=== PATIENT | male | born 1960 | race Caucasian/White ===

== ENCOUNTER 2017-12-31 18:17 | Observation (INO) | payer MEDICARE, OTHER ==
[~2017-12-31] VITALS: Ht 170.2 cm; Wt 73.7 kg
[~2017-12-31 18:17] MED LIST: LEVAQUIN500 MG PO; NEXIUM20 MG PO; NORCO 7.5-3251 EACH PO; SERTRALINE HCL100 MG PO; SINEMET 25-1001 EACH PO; STOOL SOFTENER1 EAC2 PO
[2017-12-31] MEDS ORDERED: ALBUTEROL SULF 0.083% NEB SOLN 3 ML NEB NEB STA (18:35)
[2017-12-31] MEDS ORDERED: SODIUM CHLORIDE 0.9% 500ML 500 ML IV STA (18:35)
[2017-12-31] MEDS ORDERED: IPRATROPIUM BROMIDE 0.02% 2.5 ML NEB NEB STA (18:35)
[2017-12-31 19:15] LABS: BASOPHILS # (AUTO) 0.1 (0.0-0.1); BASOPHILS % 0.5 % (0.0-1.0); EOSINOPHILS # (AUTO) 0.1 (0.0-0.4); EOSINOPHILS % 1.1 % (0.0-6.0); HEMATOCRIT 45.8 % (38.2-49.6); HEMOGLOBIN 14.8 g/dL (14.0-18.0); LYMPHOCYTES # (AUTO) 1.8 (1.0-3.2); LYMPHOCYTES % 19.2 % (18.0-39.1); MEAN CORPUSCULAR HEMOGLOBIN 29.1 pg (28-32); MEAN CORPUSCULAR HGB CONC 32.3 g/dL (31-35); MONOCYTES # (AUTO) 0.8 (0.2-0.8); MONOCYTES % 8.6 % (4.4-11.3); NEUTROPHILS # (AUTO) 6.6 (2.1-6.9); NEUTROPHILS % 70.1 % (38.7-80.0); PLATELET COUNT 298 x10e3/uL (140-360); RED BLOOD COUNT 5.09 x10e6/uL (4.3-5.7); RED CELL DISTRIBUTION WIDTH 12.9 % (11.7-14.4)
[2017-12-31] MEDS: CEFTRIAXONE SOD 1 GM VIAL IV SCH (19:23)
[2017-12-31] MEDS ORDERED: AZITHROMYCIN 500MG/NS 250 ML 250 ML IV STA (19:25)
[2017-12-31 19:26] LABS: INR 1.14; PROTHROMBIN TIME 13.7 seconds (11.9-14.5)
[2017-12-31 19:27] LABS: PARTIAL THROMBOPLASTIN TIME 28.2 seconds (23.8-35.5)
[2017-12-31 19:36] LABS: ALANINE AMINOTRANSFERASE < 6 IU/L (0-55); ALBUMIN 4.3 g/dL (3.5-5.0); ALBUMIN/GLOBULIN RATIO 1.1 (0.8-2.0); ALKALINE PHOSPHATASE 66 IU/L (40-150); ANION GAP 18.5 mmol/L (8-16); BLOOD UREA NITROGEN 14 mg/dL (7-26); BUN/CREATININE RATIO 10 (6-25); CALCIUM 10.1 mg/dL (8.4-10.2); CARBON DIOXIDE 26 mmol/L (22-29); CHLORIDE 100 mmol/L (98-107); CREATINE KINASE 139 IU/L (30-200); CREATININE, SERUM 1.41 mg/dL (0.72-1.25); EST GLOMERULAR FILTRATION RATE 51 ML/MIN (60-); GLUCOSE 100 mg/dL (74-118); MAGNESIUM 2.1 MG/DL (1.3-2.1); POTASSIUM 4.5 mmol/L (3.5-5.1); SODIUM 140 mmol/L (136-145)
[2017-12-31 19:38] LABS: B-TYPE NATRIURETIC PEPTIDE2 17.8 pg/mL (0-100)
[2017-12-31 19:55] LABS: THYROID STIMULATING HORMONE 3.046 uIU/mL (0.350-4.940)
--- NOTE | 2017-12-31 19:56 | Diagnostic Imaging Report ---
EXAM: XR CHEST 2 VIEWS DATE: 12/31/2017 6:35 PM INDICATION: Pain COMPARISON: 10/15/2016 FINDINGS: Lines and Tubes: None Heart and Mediastinum: No acute cardiomediastinal findings. Lungs and Pleura: Patchy basilar opacities in the right midlung and left lung base. Bones and Soft Tissues: No acute findings. IMPRESSION: 1. Patchy opacities. Correlation for pneumonia. 4 week follow-up recommended. Signed by: Dr. Keith Singh MD on 12/31/2017 7:52 PM
[2017-12-31] MEDS ORDERED: ASPIRIN 81 MG CHEW TAB PO ONE (20:30)
[2017-12-31] MEDS ORDERED: SODIUM CHLORIDE FLUSH 10 ML SYR INJ PRN (20:30)
[2017-12-31] MEDS ORDERED: ALBUTEROL SULF 0.083% NEB SOLN 3 ML NEB NEB SCH (20:30)
[2017-12-31 21:16] LABS: BILIRUBIN,URINE NEGATIVE (NEGATIVE); CLARITY,URINE CLEAR (CLEAR); COLOR,URINE YELLOW (YELLOW); KETONES,URINE NEGATIVE (NEGATIVE); LEUKOCYTE ESTERASE ,URINE NEGATIVE (NEGATIVE); NITRITE,URINE NEGATIVE (NEGATIVE); PROTEIN,URINE DIPSTICK NEGATIVE (NEGATIVE); URINE UROBILINOGEN 0.2 mg/dL (0.2 - 1)
[2017-12-31 21:27] LABS: BACTERIA,URINE MODERATE /HPF; MUCUS,URINE FEW (RARE)
[2017-12-31 21:42] VITALS: BP 116/74
[2017-12-31 21:50] VITALS: BP 116/74
[2018-01-01] VITALS (7 sets, daily range): BP systolic 109–130; BP diastolic 70–76
[2018-01-01] MEDS ORDERED: IPRATROPIUM BROMIDE 0.02% 2.5 ML NEB NEB SCH
[2018-01-01] MEDS ORDERED: IPRATROPIUM BROMIDE 0.02% 2.5 ML NEB NEB PRN (02:15)
[2018-01-01 04:01] LABS: CREATINE KINASE MB 2.4 ng/mL (0-5.0)
[2018-01-01] MEDS ORDERED: ALBUTEROL SULF 0.083% NEB SOLN 3 ML NEB NEB PRN (04:30)
[2018-01-01] MEDS ORDERED: AZITHROMYCIN 500MG/NS 250 ML 250 ML IV SCH (09:00)
[2018-01-01] MEDS: CARBIDOPA/LEVODOPA 25/100 TAB PO SCH ×2 (09:03→17:54)
[2018-01-01] MEDS: SERTRALINE HCL 100 MG TAB PO SCH (09:03)
[2018-01-01 11:39] LABS: CREATINE KINASE MB 2.2 ng/mL (0-5.0)
[2018-01-01] MEDS: CEFTRIAXONE SOD 1 GM VIAL IV SCH (18:21)
[2018-01-01] MEDS ORDERED: SODIUM CHLORIDE 0.9% 250ML 250 ML ONE (19:40)
[2018-01-01] MEDS: AZITHROMYCIN 500MG/NS 250 ML 250 ML IV SCH (19:57)
[2018-01-01 21:12] LABS: CREATINE KINASE MB 1.8 ng/mL (0-5.0)
[2018-01-02] VITALS (7 sets, daily range): BP systolic 99–167; BP diastolic 65–86
[2018-01-02] MEDS: CARBIDOPA/LEVODOPA 25/100 TAB PO SCH ×2 (09:00→18:10)
[2018-01-02] MEDS: SERTRALINE HCL 100 MG TAB PO SCH (09:00)
[2018-01-02] MEDS ORDERED: SODIUM CHLORIDE 0.9% 1000ML 1,000 ML IV SCH (17:30)
[2018-01-02] MEDS: CEFTRIAXONE SOD 1 GM VIAL IV SCH (18:33)
[2018-01-02] MEDS: AZITHROMYCIN 500MG/NS 250 ML 250 ML IV SCH (19:30)
--- NOTE | 2018-01-02 19:57 | Diagnostic Imaging Report ---
Video barium swallow CPT CODE: 25467 INDICATION: Aspiration pneumonia, history of CVA, consistent cough with meals COMPARISON: None TECHNIQUE: Video fluoroscopic swallowing examination was performed in conjunction with the speech therapy department. Various liquids and solid substances were used to assess swallowing. RADIATION DOSE: Fluoroscopy Time: 02:38 min Dose (Kerma) Area Product: 268.82 cGycm2 Air Kerma (AK) value (7.49 mGy) has been reviewed. It is below the limits set by the Radiation Protocol Committee (RPC) committee. FINDINGS: Spillage: There is premature spillage over the base of the tongue with all consistencies. There is premature spillage to the vallecula with all consistencies. There is premature spillage to the pyriform sinus with all consistencies. Laryngeal penetration: Present to the level of the vocal cords with thin liquids, nectar thick liquids, and honey thick liquids. Aspiration: Gross aspiration with thin liquids, santo aspiration with nectar thick liquids. Trace silent aspiration with cup and straw honey thick liquids. Residue: Moderate in the vallecula, pyriform sinuses and base of tongue. There is pharyngeal wall residue throughout. IMPRESSION: Moderate to severe dysphagia with penetration and aspiration as described above. A full report from speech pathology will follow. Signed by: Dr. Surjit Shukla MD on 01/02/2018 7:53 PM
[2018-01-02] MEDS: CLINDAMYCIN 300MG 50 ML IV SCH (21:00)
[2018-01-03 00:25] VITALS: BP 134/78
[2018-01-03] MEDS: CLINDAMYCIN 300MG 50 ML IV SCH ×3 (01:00→12:45)
[2018-01-03 03:31] VITALS: BP 132/97
[2018-01-03 04:00] VITALS: BP 132/91
[2018-01-03 04:49] LABS: BASOPHILS # (AUTO) 0.1 (0.0-0.1); BASOPHILS % 0.6 % (0.0-1.0); EOSINOPHILS # (AUTO) 0.1 (0.0-0.4); EOSINOPHILS % 1.6 % (0.0-6.0); HEMOGLOBIN 13.2 g/dL (14.0-18.0); LYMPHOCYTES # (AUTO) 2.4 (1.0-3.2); MEAN CORPUSCULAR HGB CONC 32.2 g/dL (31-35); MEAN CORPUSCULAR VOLUME 90.1 fL (81-99); MONOCYTES # (AUTO) 0.8 (0.2-0.8); MONOCYTES % 8.4 % (4.4-11.3); NEUTROPHILS # (AUTO) 5.5 (2.1-6.9); NEUTROPHILS % 61.8 % (38.7-80.0); PLATELET COUNT 242 x10e3/uL (140-360); RED BLOOD COUNT 4.55 x10e6/uL (4.3-5.7); RED CELL DISTRIBUTION WIDTH 12.8 % (11.7-14.4)
[2018-01-03 05:17] LABS: ALANINE AMINOTRANSFERASE 11 IU/L (0-55); ALBUMIN 3.8 g/dL (3.5-5.0); ALBUMIN/GLOBULIN RATIO 1.3 (0.8-2.0); ALKALINE PHOSPHATASE 57 IU/L (40-150); ANION GAP 15.8 mmol/L (8-16); BLOOD UREA NITROGEN 10 mg/dL (7-26); BUN/CREATININE RATIO 12 (6-25); CALCIUM 9.5 mg/dL (8.4-10.2); CARBON DIOXIDE 23 mmol/L (22-29); CHLORIDE 103 mmol/L (98-107); CREATININE, SERUM 0.85 mg/dL (0.72-1.25); EST GLOMERULAR FILTRATION RATE > 60 ML/MIN (60-); GLUCOSE 86 mg/dL (74-118); POTASSIUM 3.8 mmol/L (3.5-5.1); SODIUM 138 mmol/L (136-145)
[2018-01-03 08:00] VITALS: BP 131/93
--- NOTE | 2018-01-03 09:17 | Diagnostic Imaging Report ---
EXAMINATION: CHEST SINGLE (PORTABLE) INDICATION: \S\aspiration \[id number] \S\[id number] COMPARISON: 12/31/2017 FINDINGS: AP view TUBES and LINES: None. LUNGS: Lungs are well inflated. Improvement in previously noted patchy bibasilar opacities. Lungs are clear. There is no evidence of pneumonia or pulmonary edema. PLEURA: No pleural effusion or pneumothorax. HEART AND MEDIASTINUM: The cardiomediastinal silhouette is unremarkable. BONES AND SOFT TISSUES: No acute osseous lesion. Soft tissues are unremarkable. UPPER ABDOMEN: No free air under the diaphragm. IMPRESSION: No acute thoracic abnormality. Signed by: DR. Francisco Pardo MD on 01/03/2018 8:49 AM
--- NOTE | 2018-01-03 10:27 | Diagnostic Imaging Report ---
EXAM: CT Chest WITHOUT contrast INDICATION: \S\Pneumonia \[id number] \S\[id number] COMPARISON: Chest CT 10/12/2016 TECHNIQUE: Chest was scanned utilizing a multidetector helical scanner from the lung apex through the level of the adrenal glands without administration of IV contrast. Absence of intravenous contrast decreases sensitivity for detection of lymphadenopathy and vascular pathology. Coronal and sagittal reformations were obtained. Routine protocol was performed. IV CONTRAST: None COMPLICATIONS: None RADIATION DOSE: Total DLP: 253.7 mGy*cm Estimated effective dose: (DLP x 0.014 x size factor) mSv CTDIvol has been reviewed. It is below the limits set by the Radiation Protocol Committee (RPC). FINDINGS: LINES/ TUBES: None. LUNGS AND AIRWAYS: Punctate hyperattenuating barium within the lower lobe bronchi (for example on series 2 image 87) relating to aspirated barium. No associated consolidation. New right middle lobe cavitating lesion measuring approximately 2.7 cm (series 3 image 77). PLEURA: The pleural spaces are clear. HEART AND MEDIASTINUM: The thyroid gland is normal. No mediastinal, hilar or axillary lymphadenopathy. The heart is normal in size.. Small pericardial effusion. UPPER ABDOMEN: Contracted gallbladder. BONES: No acute abnormalities. SOFT TISSUES: Unremarkable. IMPRESSION: Aspirated pneumonia within the lower lobe bronchi without consolidation. New right middle lobe cavitary lesion which may be infectious, inflammatory, vascular, or neoplastic in etiology. Signed by: DR. Francisco Pardo MD on 01/03/2018 10:24 AM
[2018-01-03] MEDS: CARBIDOPA/LEVODOPA 25/100 TAB PO SCH (10:28)
[2018-01-03] MEDS: SERTRALINE HCL 100 MG TAB PO SCH (10:29)
[2018-01-03 10:30] VITALS: BP 131/93
[2018-01-03 12:00] VITALS: BP 117/67
--- NOTE | 2018-01-03 12:55 | Consultation ---
DATE OF CONSULTATION: PULMONARY CONSULTATION REASON FOR CONSULTATION: Aspiration pneumonia, abnormal CT chest. HPI: Mr. Anderson is a 57-year-old male who has traumatic brain injury. Patient is unable to give me any history. Source of history is the chart. He was admitted by Dr. Giron with complaints of shortness of breath. Subsequently, a swallowing evaluation was done, which showed that he is aspirating on all consistency, and diagnosed with aspiration pneumonia. The patient's CT of the chest is showing right middle lobe cavity, which is new. I have compared the CT scan films from 2017 to now. Patient is not in any respiratory distress. He is not able to give me a lot of history. REVIEW OF SYSTEMS: Unable to elicit any as the patient is unable to give me any history. PAST MEDICAL HISTORY: CVA, stroke in the past, traumatic brain injury. FAMILY/SOCIAL HISTORY: He lives with his . Does not smoke. Does not drink. PHYSICAL EXAMINATION VITAL SIGNS: Temperature 96.8, pulse of 60, blood pressure 130/93, respiratory rate of 18, O2 sat 100% room. HEENT: Head is atraumatic and normocephalic. NECK: Supple. CHEST: Clear to auscultation bilaterally. No wheezing. HEART: S1 and S2 audible. ABDOMEN: Soft. EXTREMITIES: No pedal edema. NEUROLOGIC: Awake, alert but unable to carry out any conversation. LABS: White count of 8000, hemoglobin 13.2 and platelets 242,000. Chemistry is within normal limits. CT of the chest, I reviewed the images from January 03, 2017, and September of 2016. This is showing evidence of aspiration. There is a right middle lobe cavity which is new. It is small in size. ASSESSMENT AND PLAN: Mr. Anderson is a 57-year-old male who presented with cough and was found to have aspiration. He has traumatic brain injury. CURRENT PROBLEMS 1. Aspiration pneumonitis: Patient is on antibiotics. He is stable for now, and can be discharged on p.o. antibiotics. 2. Oropharyngeal dysphagia: Family does not want feeding tube at this point. 3. Right middle lobe cavity which is new: In this context could be likely due to recurrent aspiration. However, needs close followup. I am trying to reach the patient's to tell her that he will need a followup CT scan in at least 6-8 weeks. Follow up on the cavity. If it is still there or if it has changed size, then the patient may need bronchoscopy versus biopsy of this cavity to rule out chronic infection or malignancy. This was discussed with Dr. Pope, who is the primary care physician and who has admitted the patient to the hospital. Thank you for this consult. Job#: [id number] RI
[2018-01-03] MEDS ORDERED: LEVAQUIN500 MG PO (15:04)
--- OUTSIDE RECORDS SUMMARY | 2018-02-19 02:02 | XMS REPORT | Summary of Care ---
Author Author [facility] Address Unknown Phone Unavailable Encounter HQ Catie_iris([place]) [id number] Date(s): 11/01/15 - 11/30/[address] [facility] [address] [place], [place] [address] [phone] Discharge Disposition: Home Attending Physician: Susan Rod MD Vital Signs No data available for this section Problem List Condition Effective Dates Status Health Status Informant Altered mental Active status(Confirmed) Cerebral Active contusion(Confirmed) Cerebral vascular Active accident(Confirmed) Dysphagia(Confirmed) Active Fever(Confirmed) < 09/15/10 Resolved Fractures(Confirmed) Active Pain(Confirmed) Active Respiratory < 09/14/10 Resolved distress(Confirmed) Respiratory Active failure(Confirmed) Tachycardia(Confirme < 09/15/10 Resolved d) Traumatic brain Active injury(Confirmed) Allergies, Adverse Reactions, Alerts Substance Reaction Severity Status NKDA Active Medications No data available for this section Results No data available for this section Immunizations No data available for this section Procedures No data available for this section Social History Social History Type Response Assessment and Plan No data available for this section
--- OUTSIDE RECORDS SUMMARY | 2018-02-19 02:02 | XMS REPORT | Summary of Care ---
Author Author [facility] Address Unknown Phone Unavailable Encounter HQ Catie_iris(FIN) [id number] Date(s): 07/17/16 - 08/15/16 [facility] [address] [place], [place] [address] Discharge Disposition: Home or Self Care Attending Physician: Susan Rod MD Vital Signs [...]
--- OUTSIDE RECORDS SUMMARY | 2018-02-19 02:02 | XMS REPORT | Summary of Care ---
Author Author [facility] Address Unknown Phone Unavailable Encounter HQ Bart([place]) [id number] Date(s): 07/19/15 - 08/17/15 [facility] [address] [place], [place] [id number] [place] [address] [phone] Discharge Disposition: Home Attending Physician: Susan Rod MD Vital Signs Most recent to 1 2 oldest [Reference Range]: Blood Pressure 133/70 mmHg 135/90 mmHg [90-140/60-90 mmHg] (08/04/15 3:14 PM) (07/21/15 3:15 PM) Peripheral Pulse 69 bpm 75 bpm Rate [60-100 bpm] (08/04/15 3:14 PM) (07/21/15 3:15 PM) Problem List Condition Effective Dates Status Health [...]
--- OUTSIDE RECORDS SUMMARY | 2018-02-19 02:02 | XMS REPORT | Summary of Care ---
Author Author [facility] Address Unknown Phone Unavailable Encounter HQ Chelar_iris([place]) [id number] Date(s): 11/23/14 - 12/22/14 [facility] Discharge Disposition: Home Attending Physician: Susan Rod [...]
--- OUTSIDE RECORDS SUMMARY | 2018-02-19 02:02 | XMS REPORT | Summary of Care ---
Author Author [facility] Address Unknown Phone Unavailable Encounter HQ Catie_iris([place]) [id number] Date(s): 12/01/15 - 12/30/15 [facility] [address] [place], [place] [address] Discharge Disposition: Home or Self Care Attending [...]
--- OUTSIDE RECORDS SUMMARY | 2018-02-19 02:02 | XMS REPORT | Summary of Care ---
Author Author [facility] Address Unknown Phone Unavailable Encounter HQ Chelar_iris([place]) [id number] Date(s): 01/10/15 - 02/08/15 [facility] Discharge Disposition: Home Attending Physician: Susan Rod [...]
--- OUTSIDE RECORDS SUMMARY | 2018-02-19 02:02 | XMS REPORT | Summary of Care ---
Author Author [facility] Address Unknown Phone Unavailable Encounter HQ Bart([place]) [id number] Date(s): 06/16/15 - 07/15/15 [place] [address] [place], [place] [id number] [place] [address] Discharge Disposition: Home Attending Physician: Susan Rod MD Referring Physician: [id number] -UNKNOWN, PERSONNEL Vital Signs Most recent to 1 oldest [Reference Range]: Blood Pressure 139/97 mmHg [90-140/60-90 mmHg] (06/16/15 11:04 AM) Peripheral Pulse 82 bpm Rate [60-100 bpm] (06/16/15 11:04 AM) Problem List Condition Effective Dates Status Health [...]
--- OUTSIDE RECORDS SUMMARY | 2018-02-19 02:02 | XMS REPORT | Summary of Care ---
Author Author [facility] Address Unknown Phone Unavailable Encounter HQ Catie_iris(FIN) [id number] Date(s): 06/10/16 - 07/09/16 [facility] [address] [place], [place] [address] Discharge Disposition: Home or Self [...]
--- OUTSIDE RECORDS SUMMARY | 2018-02-19 02:02 | XMS REPORT | CCD ---
Author Author [facility] Address Unknown Phone Unavailable Care Team Providers Care Human Service Coordinator Name Role Phone Jan Toledo RP Yaniv Patrick CP Allergies, Adverse Reactions, Alerts Substance Reaction Status NKDA Active Problem List Condition Effective Dates Status Altered mental status Active Cerebral contusion Active Cerebral vascular accident Active Dysphagia Active Fever < 09/15/2010 Resolved Fractures Active Pain Active Respiratory distress < 09/14/2010 Resolved Respiratory failure Active Tachycardia < 09/15/2010 Resolved Traumatic brain injury Active
--- OUTSIDE RECORDS SUMMARY | 2018-02-19 02:02 | XMS REPORT | Summary of Care ---
Author Author [facility] Address Unknown Phone Unavailable Encounter HQ Catie_iris([place]) [id number] Date(s): 01/03/16 - 02/01/16 [facility] [address] [place], [place] [address] Discharge Disposition: Home or Self [...]
--- OUTSIDE RECORDS SUMMARY | 2018-02-19 02:02 | XMS REPORT | Summary of Care ---
Author Organization Unknown Address Unknown Phone Unavailable Encounter HQ Encntr_iris([place]) [id number] Date(s): 07/28/14 - 07/28/[id number] [place] [address] Discharge Disposition: Home Physician Attending: Joyce Toledo MD Physician_Referring: Joyce Toledo MD Vital Signs No data available for [...]
--- OUTSIDE RECORDS SUMMARY | 2018-02-19 02:02 | XMS REPORT | Summary of Care ---
Author Author [facility] Address Unknown Phone Unavailable Encounter HQ Bart([place]) [id number] Date(s): 08/18/15 - 09/16/15 [facility] [address] [place], [place] [id number] [place] [address] Discharge Disposition: Home Attending Physician: Susan Rod MD Vital Signs Most recent to 1 2 oldest [Reference Range]: Blood Pressure 119/80 mmHg 124/79 mmHg [90-140/60-90 mmHg] (09/01/15 11:01 AM) (08/25/15 2:11 PM) Peripheral Pulse 69 bpm 76 bpm Rate [60-100 bpm] (09/01/15 11:01 AM) (08/25/15 2:11 PM) Problem List Condition Effective Dates Status [...]
== END 2018-01-03 15:37 | disposition home or self-care (01) ==
LOC: ER 18:17 → ERHOLD 21:14 → INTOOBSV 21:14 → MED/SURG2 21:17
PROVIDERS: ADMIT Internal Medicine; ATTEND Internal Medicine
DX: J69.0 Pneumonitis due to inhalation of food and vomit (principal); N40.0 Benign prostatic hyperplasia without lower urinary tract symptoms; I12.9 Hypertensive chronic kidney disease with stage 1 through stage 4 chronic kidney disease, or unspecified chronic kidney disease; N18.3 Chronic kidney disease, stage 3 (moderate); Z86.73 Personal history of transient ischemic attack (TIA), and cerebral infarction without residual deficits; Z82.49 Family history of ischemic heart disease and other diseases of the circulatory system; R13.12 Dysphagia, oropharyngeal phase; J98.4 Other disorders of lung
CPT/HCPCS: 36415 ×2; 71045; 71046; 71250; 74230; 80053 ×2; 81001; 82550 ×2; 82553 ×2; 83605; 83735; 83880; 84443; 84484 ×2; 85025 ×2; 85610; 85730; 87040; 87086; 92526 ×2; 92610; 92611; 93005; 99284; G0378 ×4; G8996; G8997; J0456 ×3; J0696 ×3; J7030; J7050

== ENCOUNTER 2018-02-11 12:55 | Outpatient (RCR) | payer OTHER | END 2018-02-15 | LOC: ST 12:55 | PROVIDERS: ATTEND Family Medicine | DX: R13.13 Dysphagia, pharyngeal phase (principal); I69.398 Other sequelae of cerebral infarction | CPT/HCPCS: 97139 ==

== ENCOUNTER 2018-03-06 12:57 | Outpatient (RCR) | payer MEDICARE, OTHER | END 2018-03-18 | LOC: ST 12:57 | PROVIDERS: ATTEND Family Medicine | DX: R13.13 Dysphagia, pharyngeal phase (principal); I69.998 Other sequelae following unspecified cerebrovascular disease | CPT/HCPCS: 92526 ×8; 97139 ×2; G8996; G8997 ==

== ENCOUNTER → 2018-03-11 | Outpatient (CLI) | payer MEDICARE, OTHER ==
--- NOTE | 2018-03-13 09:50 | Diagnostic Imaging Report ---
PROCEDURE:X-RAY MODIFIED BARIUM SWALLOW COMPARISON:Modified barium swallow 01/02/18. INDICATIONS:Not provided. DISCUSSION:Fluoroscopic examination was performed in conjunction with speech pathology, during swallowing of a variety of thin and thick liquid consistencies. Penetration is noted on all swallow sequences. Gross aspiration is present within thin liquids and trace aspiration with multiple swallows. CONCLUSION:Penetration and aspiration as above. Please see the report from speech pathology for complete details. Dictated by: MARCELL TRAVIS M.D. on 03/13/2018 at 9:58 Electronically approved by: MARCELL TRAVIS M.D. on 03/13/2018 at 9:58
== END ==
LOC: DX 13:09
PROVIDERS: ATTEND Family Medicine
DX: R13.13 Dysphagia, pharyngeal phase (principal); I69.898 Other sequelae of other cerebrovascular disease
CPT/HCPCS: 74230

== ENCOUNTER 2018-03-23 13:21 | Outpatient (RCR) | payer MEDICARE | END 2018-04-17 | LOC: ST 13:21 | PROVIDERS: ATTEND Family Medicine | DX: I69.998 Other sequelae following unspecified cerebrovascular disease (principal); R13.13 Dysphagia, pharyngeal phase | CPT/HCPCS: 92526 ×6; 97139 ×2; G8996; G8997 ==

== ENCOUNTER 2018-04-27 12:54 | Outpatient (RCR) | payer MEDICARE ==
--- NOTE | 2018-04-24 13:21 | NUR ---
ST NOTE: Pt no show for therapy session. One remaining session and MBS scheduled next week
== END 2018-05-18 ==
LOC: ST 12:54
PROVIDERS: ATTEND Family Medicine
DX: I69.898 Other sequelae of other cerebrovascular disease (principal); R13.13 Dysphagia, pharyngeal phase

== ENCOUNTER → 2018-04-29 | Outpatient (CLI) | payer MEDICARE ==
--- NOTE | 2018-04-30 09:28 | Diagnostic Imaging Report ---
PROCEDURE:X-RAY MODIFIED BARIUM SWALLOW COMPARISON:Modified barium swallow 01/02/2018. INDICATIONS:Dysphagia. DISCUSSION:Fluoroscopic examination was performed in conjunction with speech pathology, during swallowing of a variety of thin and thick liquid consistencies. Examination showed premature spillage over the base of the tongue and vallecula with all consistencies. Laryngeal penetration into the laryngeal vestibule to the level of the vocal cords was noted with all consistencies. Malcom silent and overt aspiration was noted with thin liquids. Minimal silent aspiration of nectar thick liquids was seen. Silent trace aspiration of thin and thick pure was noted. Minimal vallecular and trace pyriform sinus and base of tongue residue was noted following swallows of all consistencies. CONCLUSION:Moderate pharyngeal dysphagia, with aspiration of multiple consistencies. Please see the report from speech pathology for complete details. Nehemias Rivera M.D. Dictated by: Nehemias Rivera M.D. on 04/30/2018 at 9:37 Electronically approved by: Nehemias Rivera M.D. on 04/30/2018 at 9:37
== END ==
LOC: DX 12:43
PROVIDERS: ATTEND Family Medicine
DX: R13.13 Dysphagia, pharyngeal phase (principal); I69.898 Other sequelae of other cerebrovascular disease
CPT/HCPCS: 74230; 92611; G8996; G8997; G8998

== ENCOUNTER → 2022-02-21 | Outpatient (CLI) | payer MEDICARE | LOC: DX 11:21 | PROVIDERS: ATTEND Physician Assistant | DX: R13.10 Dysphagia, unspecified (principal) | CPT/HCPCS: 74230 ==

== ENCOUNTER → 2022-10-16 | Outpatient (CLI) | payer MEDICARE | LOC: MRI 12:23 | PROVIDERS: ATTEND Psychiatry & Neurology Neurology | DX: R27.0 Ataxia, unspecified (principal); G24.9 Dystonia, unspecified; R48.2 Apraxia; F07.81 Postconcussional syndrome; R13.10 Dysphagia, unspecified; G23.1 Progressive supranuclear ophthalmoplegia [Steele-Richardson-Olszewski] | CPT/HCPCS: 70551 ==

== ENCOUNTER 2022-11-13 11:02 | Outpatient (RCR) | payer MEDICARE | END 2022-11-15 | LOC: ST 11:02 | PROVIDERS: ATTEND Family Medicine | DX: R26.9 Unspecified abnormalities of gait and mobility (principal); Z87.820 Personal history of traumatic brain injury ==